=== PATIENT | male | born 1965 | race African-American/Black ===

== ENCOUNTER 2025-06-20 05:30 | Day surgery (SDC) | payer OTHER ==
[2025-06-14 11:21] VITALS: BMI 18.6
[2025-06-20] MEDS ORDERED: Lidocaine 1% PF 5 ML VIAL ONE (06:26)
== END 2025-06-20 08:41 | disposition home or self-care (01) ==
LOC: CSHSDC 05:30
PROVIDERS: ATTEND Surgery
PROC: 0DBL8ZZ Excision of Transverse Colon, Via Natural or Artificial Opening Endoscopic (ICD-10-PCS; principal; 2025-06-20)
PROC: 0DBN8ZZ Excision of Sigmoid Colon, Via Natural or Artificial Opening Endoscopic (ICD-10-PCS; principal; 2025-06-20)
DX: Z12.11 Encounter for screening for malignant neoplasm of colon (principal); D12.3 Benign neoplasm of transverse colon; D12.5 Benign neoplasm of sigmoid colon; I10 Essential (primary) hypertension; E78.5 Hyperlipidemia, unspecified; F17.200 Nicotine dependence, unspecified, uncomplicated; Z79.899 Other long term (current) drug therapy
CPT/HCPCS: 88305; J2371; J2704